=== PATIENT | male | born 1965 | race Caucasian/White ===

== ENCOUNTER 2022-02-10 09:13 | Outpatient (CLI) | payer MEDICAID, SELFPAY ==
[2022-02-10 13:32] LABS: Albumin* 4.4 g/dL (3.3-5.0)
[2022-02-10 13:33] LABS: Chloride* 103 mmol/L (96-114); Sodium* 139 mmol/L (135-149)
[2022-02-10 13:35] LABS: Aspartate Amino Transferase* 25 U/L (12-35); Bilirubin Total* 0.7 mg/dL (0.1-1.5); Blood Urea Nitrogen* 21 mg/dL (7-30); Carbon Dioxide* 30 mmol/L (20-32); Cholesterol* 196 mg/dL (90-199); Creatinine* 0.8 mg/dL (0.5-1.5); Estimated Glomerular Filt Rate 103 ml/min; Glucose* 107 mg/dL (60-115); Total Protein* 6.8 g/dL (6.0-8.3)
[2022-02-10 13:36] LABS: Alanine Aminotransferase* 20 U/L (4-50); Alkaline Phosphatase* 56 U/L (40-150); Calcium* 9.5 mg/dL (8.4-10.6); HDL Cholesterol* 72 mg/dL (>=40); LDL Cholesterol Calculated 103 mg/dL (<100); Triglycerides* 104 mg/dL (40-149)
[2022-02-10 14:04] LABS: PSA Screen* 1.32 ng/mL (0.10-4.00)
== END 2022-02-10 09:14 | disposition home or self-care (01) ==
PROVIDERS: PCP Family Medicine; Visit Provider Nurse Practitioner Family
DX: K58.9 Irritable bowel syndrome, unspecified (principal); N40.0 Benign prostatic hyperplasia without lower urinary tract symptoms; Z13.6 Encounter for screening for cardiovascular disorders
CPT/HCPCS: 80053; 80061; 84153

== ENCOUNTER 2023-03-09 09:40 | Outpatient (CLI) | payer MEDICAID, SELFPAY | END 2023-03-09 09:41 | disposition home or self-care (01) | LOC: LONREF 09:40 | PROVIDERS: PCP Family Medicine; Visit Provider Nurse Practitioner Family | DX: N40.1 Benign prostatic hyperplasia with lower urinary tract symptoms (principal); Z12.5 Encounter for screening for malignant neoplasm of prostate | CPT/HCPCS: 84153 ==

== ENCOUNTER 2024-03-21 13:06 | Outpatient (CLI) | payer MEDICAID, SELFPAY | END 2024-03-21 13:07 | disposition home or self-care (01) | PROVIDERS: PCP Family Medicine; Visit Provider Nurse Practitioner Family | DX: N40.0 Benign prostatic hyperplasia without lower urinary tract symptoms (principal); I10 Essential (primary) hypertension; R53.83 Other fatigue; Z13.220 Encounter for screening for lipoid disorders | CPT/HCPCS: 80053; 80061; 84270; 84402; 84403; G0103 ==

== ENCOUNTER 2025-03-27 13:41 | Outpatient (CLI) | payer MEDICAID, SELFPAY | END 2025-03-27 13:42 | disposition home or self-care (01) | PROVIDERS: PCP Nurse Practitioner Family; Visit Provider Nurse Practitioner Family | DX: Z13.6 Encounter for screening for cardiovascular disorders (principal); Z12.5 Encounter for screening for malignant neoplasm of prostate | CPT/HCPCS: 80061; G0103 ==

== ENCOUNTER 2025-04-23 14:02 | Outpatient (CLI) | payer MEDICAID, SELFPAY | END 2025-04-23 14:03 | disposition home or self-care (01) | LOC: FRMREF 14:06 | PROVIDERS: PCP Nurse Practitioner Family; Visit Provider Nurse Practitioner Family | DX: Z01.818 Encounter for other preprocedural examination (principal) | CPT/HCPCS: 80053 ==

== ENCOUNTER 2025-05-01 06:14 | Day surgery (SDC) | payer MEDICAID, SELFPAY ==
[2025-05-01] VITALS (16 sets, daily range): BP systolic 105–151; BP diastolic 63–90; PULSE 49–61; RESP 10–16; TEMP 36.2–36.8; O2SAT 93–99; BMI 22.1
[2025-05-01] MEDS: SODIUM CHLORIDE 0.9 % (FLUSH) 10 ML SYRINGE IVF (07:16)
[2025-05-01] MEDS: LACTATED RINGERS 1000 ML 1,000 ML 100 ML IV (07:16)
--- NOTE | 2025-05-01 07:49 | W.PM.H&PU ---
History & Physical Update History & Physical Update H&P Reviewed and patient assessed: No changes noted
--- NOTE | 2025-05-01 07:49 | PM.GSPRC ---
Operative Note Date of procedure: 05/01/25 Pre-op diagnosis: Bilateral inguinal hernia Post-op diagnosis: Same Type of Procedure: Laparoscopic bilateral inguinal hernia repair with mesh Indications: The patient is a 59-year-old male who recently developed a right groin bulge which is symptomatic for him with activity. When he was evaluated in clinic he was also found to have a left-sided inguinal hernia as well. After discussion, he elected to proceed with repair of both sides. Procedure Description: After discussing the risks and benefits of the procedure, the patient signed informed consent.? The operative site was marked and the patient was brought to the operating room and placed on the operating table in supine position.? Care was taken to pad the patient's pressure points.?? The patient was then intubated by anesthesia.?? His arms were tucked at his sides. The operative site was then prepped and draped in the usual sterile fashion.? A time-out was then performed. A curvilinear incision was made below the umbilicus. Dissection was carried down to subcutaneous tissue until the anterior rectus fascia was encountered. This was incised off the midline on the right. The rectus muscle fibers were then retracted exposing the posterior fascia. A port with a dissecting balloon was then introduced into the pre-preperitoneal space. This was inflated under direct vision. The balloon was deflated, removed, and a 10 mm working port was placed. The space was insufflated and a 10 mm 30-degree scope was then advanced into the space. Two 5 mm ports were placed in the midline under direct vision. Dissection began on the right side. Jose G's ligament and the pubic bone were exposed medially. Following this, dissection was carried out laterally. An indirect defect was noted. The sac was dissected free from the cord structures using a combination of sharp and blunt dissection. Once the sac was completely reduced, attention was turned to the left. I began by clearing Jose G's ligament medially and taking my dissection laterally. The patient had a direct defect. This tissue was reduced. No indirect defect was noted. The peritoneum was dissected free from the cord structures and a space was made laterally for the mesh. Once this was done, 2 pieces of Bard 3DMax mesh for the right and left side were placed in the abdomen. They were each positioned with the markers pointed medially, overlapping in the middle, more so on the left side where the direct hernia was located. A Tacker was used to tack the mesh at Jose G's ligament medially an additional tack medially and superiorly to hold the mesh in position over the direct defect. Once this was completed, the preperitoneal space desufflated under direct vision to ensure the mesh laid flat. 10 mL of 0.5% Marcaine were instilled into the preperitoneal space through a port. The ports were removed. The fascia from the infraumbilical port was closed with 0 Vicryl. The skin incisions were closed with absorbable subcuticular suture. Sterile dressings were applied. Sterile dressings were then applied. The scrotum was examined to ensure that both testicles were down. Instrument sponge and needle counts were correct at the end of the case. ? The patient was then woken and transported to the recovery area in stable condition. ? The patient tolerated the procedure well. Findings: Indirect right inguinal hernia and direct left inguinal hernia. Anesthesia: GETA Surgeon: Ellen Elmore MD Estimated blood loss (mL): 5 Condition: stable Disposition: PACU
[2025-05-01] MEDS: BUPIVACAINE 0.25% 30 ML INJECTION (08:45)
--- NOTE | 2025-05-01 08:56 | P.ANES_ITS ---
Anesthesia Charges Start Date/Time Anesthesia Start Date: 05/01/25 Anesthesia Start Time: 07:44 Stop Date/Time Anesthesia Stop Date: 05/01/25 Anesthesia Stop Time: 08:59 Coding CPT Codes CPT Codes: ANESTH REPAIR OF HERNIA - 66325 ([id number]) P1 - NORMAL HEALTHY PATIENT, QK - ASSISTANT COMMUNITY DIRECTOR 2-4 CNCRNT ANES PROC, QX - DIEING OUT MACHINE OPERATOR SVPrince W/ MED DIRECTION
--- NOTE | 2025-05-01 08:56 | W.ANESCHARGE ---
Anesthesia Charges Start Date/Time Anesthesia Start Date: 05/01/25 Anesthesia Start Time: 07:44 Stop Date/Time Anesthesia Stop Date: 05/01/25 Anesthesia Stop Time: 08:59 Coding CPT Codes CPT Codes: ANESTH REPAIR OF HERNIA - 62749 ([id number]) P1 - NORMAL HEALTHY PATIENT, QK - ELEVATOR SUPERVISOR 2-4 CNCRNT ANES PROC, QX - POOL MANAGER SVPrince W/ MED DIRECTION
--- NOTE | 2025-05-01 09:00 | P.ANES_ITS ---
Anesthesia Charges Start Date/Time Anesthesia Start Date: 05/01/25 Anesthesia Start Time: 07:44 Stop Date/Time Anesthesia Stop Date: 05/01/25 Anesthesia Stop Time: 08:59 Coding CPT Codes CPT Codes: ANESTH SURG LOWER ABDOMEN - 82229 ([id number]) QK - RESOLUTION MANAGER 2-4 CNCRNT ANES PROC, QX - PARTS ANALYST SVC W/ MD MED DIRECTION, P1 - NORMAL HEALTHY PATIENT
--- NOTE | 2025-05-01 09:00 | W.ANESCHARGE ---
Anesthesia Charges Start Date/Time Anesthesia Start Date: 05/01/25 Anesthesia Start Time: 07:44 Stop Date/Time Anesthesia Stop Date: 05/01/25 Anesthesia Stop Time: 08:59 Coding CPT Codes CPT Codes: ANESTH SURG LOWER ABDOMEN - 34572 ([id number]) QK - OFFSET LITHOGRAPHIC PRESS OPERATOR 2-4 CNCRNT ANES PROC, QX - DIETARY INTERNSHIP SVC W/ MD MED DIRECTION, P1 - NORMAL HEALTHY PATIENT
[2025-05-01] MEDS: LACTATED RINGERS 1000 ML 1,000 ML 200 ML IV (09:25)
--- NOTE | 2025-05-01 11:29 | SUR.PHASEII ---
1115: Patient ambulatory to restroom with stand by assist. Patient voided. Returned to 3 ambulatory with stand by assist.
== END 2025-05-01 11:24 | disposition home or self-care (01) ==
PROVIDERS: PCP Nurse Practitioner Family; Visit Provider Surgery
PROC: (CPT 49650; principal; 2025-05-01 07:30)
DX: K40.20 Bilateral inguinal hernia, without obstruction or gangrene, not specified as recurrent (principal)
CPT/HCPCS: 49650; 00830; 00840; C1781; J0330; J0665; J0690; J1100; J2250; J2405; J2704; J2710; J3010; J3490; J7120